=== PATIENT | female | born 1925 | race African-American/Black ===

== ENCOUNTER 2016-07-17 12:15 | Inpatient (IN) | payer MEDICARE, BC ==
[~2016-07-17] VITALS: Ht 167.6 cm; Wt 50.9 kg
[2016-07-17] MEDS ORDERED: DUONEB INH ONE (13:06)
[2016-07-17] MEDS ORDERED: CEFTRIAXONE 1 GM VIAL ONE (14:15)
[2016-07-17] MEDS ORDERED: SODIUM CHLORIDE 0.9% 100 ML IV ONE (14:15)
[2016-07-17] MEDS ORDERED: SODIUM CHLORIDE 0.9% 1,000 ML ONE (15:33)
[2016-07-17] MEDS ORDERED: SALINE FLUSH 10 ML FLUSH PRN (15:50)
[2016-07-17 17:21] VITALS: BP_SYST 178; RESP 24; TEMP 98.2
[2016-07-17 17:44] VITALS: BP_SYST 160
[2016-07-17 17:58] VITALS: BMI 19.4
[2016-07-17 19:00] VITALS: RESP 22
[2016-07-17] MEDS: NEB-BUDESONIDE 0.5 MG INH SCH (19:24)
[2016-07-17] MEDS: NEB-BROVANA 15 MCG/2 ML INH SCH (19:24)
[2016-07-17 19:47] VITALS: BP_SYST 126; RESP 22; TEMP 97.7
[2016-07-17] MEDS: Furosemide 40 MG/4 ML VIAL IV SCH (20:14)
[2016-07-17] MEDS: SALINE FLUSH 10 ML FLUSH SCH (20:14)
[2016-07-17] MEDS ORDERED: APIXABAN 2.5 MG TAB PO SCH (21:00)
[2016-07-17 23:06] VITALS: BP_SYST 127; RESP 20; TEMP 97.8
[2016-07-18 04:20] VITALS: BP_SYST 112; RESP 20; TEMP 97.8
[2016-07-18] MEDS: SODIUM CHLORIDE 0.9% FLUSH BAG 500 ML IV SCH ×2 (06:00→08:48)
[2016-07-18] MEDS: NEB-BUDESONIDE 0.5 MG INH SCH ×2 (07:01→18:33)
[2016-07-18] MEDS: NEB-BROVANA 15 MCG/2 ML INH SCH ×2 (07:01→18:33)
[2016-07-18 07:30] VITALS: BP_SYST 141; RESP 20; TEMP 97.8
[2016-07-18] MEDS: FERROUS GLUC 324 MG TAB PO SCH ×3 (08:48→16:43)
[2016-07-18] MEDS: SALINE FLUSH 10 ML FLUSH SCH ×2 (08:48→20:21)
[2016-07-18] MEDS: CEFTRIAXONE 1 GM in SODIUM CHLORIDE 0.9% 50 ML IV SCH (08:49)
[2016-07-18] MEDS: MEGESTROL 800 MG/20 ML UDC PO SCH (08:49)
[2016-07-18] MEDS: SPIRONOLACTONE 25 MG TAB PO SCH (08:49)
[2016-07-18] MEDS: Furosemide 40 MG/4 ML VIAL IV SCH ×2 (08:50→19:00)
[2016-07-18] MEDS ORDERED: METOPROLOL XL 25 MG TAB PO SCH (09:00)
[2016-07-18 11:19] VITALS: BP_SYST 130; RESP 20; TEMP 97.6
[2016-07-18] MEDS ORDERED: METOPROLOL XL 25 MG TAB PO ONE (14:35)
[2016-07-18 16:02] VITALS: BP_SYST 105; RESP 20; TEMP 97.5
[2016-07-18] MEDS: NEB-ALBUTEROL 2.5 MG/3 ML INH SCH (18:33)
[2016-07-18 19:43] VITALS: BP_SYST 96; RESP 20; TEMP 97.5
[2016-07-18 22:51] VITALS: BP_SYST 125; RESP 12; RESP 14; TEMP 98.3
[2016-07-19 03:13] VITALS: BP_SYST 120; RESP 14; TEMP 98.4
[2016-07-19] MEDS: SODIUM CHLORIDE 0.9% FLUSH BAG 500 ML IV SCH (05:57)
[2016-07-19 07:20] VITALS: BP_SYST 116; RESP 16; TEMP 97.1
[2016-07-19] MEDS: NEB-BUDESONIDE 0.5 MG INH SCH ×2 (07:55→20:02)
[2016-07-19] MEDS: NEB-ALBUTEROL 2.5 MG/3 ML INH SCH ×3 (07:55→20:02)
[2016-07-19] MEDS: NEB-BROVANA 15 MCG/2 ML INH SCH ×2 (07:55→20:02)
[2016-07-19] MEDS: CEFTRIAXONE 1 GM in SODIUM CHLORIDE 0.9% 50 ML IV SCH (08:55)
[2016-07-19] MEDS: MEGESTROL 800 MG/20 ML UDC PO SCH (08:56)
[2016-07-19] MEDS: METOPROLOL XL 25 MG TAB PO SCH (08:56)
[2016-07-19] MEDS: Furosemide 40 MG/4 ML VIAL IV SCH (08:56)
[2016-07-19] MEDS: FERROUS GLUC 324 MG TAB PO SCH ×3 (08:56→18:13)
[2016-07-19] MEDS: SPIRONOLACTONE 25 MG TAB PO SCH (08:57)
[2016-07-19] MEDS: SALINE FLUSH 10 ML FLUSH SCH ×2 (08:57→19:54)
[2016-07-19 11:24] VITALS: BP_SYST 105; RESP 16; TEMP 98
[2016-07-19 15:24] VITALS: BP_SYST 102; RESP 16; TEMP 97.9
[2016-07-19 19:32] VITALS: BP_SYST 112; RESP 16; TEMP 97.2
[2016-07-19 23:05] VITALS: BP_SYST 127; RESP 16; TEMP 98.3
[2016-07-20 04:01] VITALS: BP_SYST 140; RESP 16; TEMP 98.6
[2016-07-20] MEDS: SODIUM CHLORIDE 0.9% FLUSH BAG 500 ML IV SCH (06:05)
[2016-07-20] MEDS: NEB-BROVANA 15 MCG/2 ML INH SCH ×2 (07:05→18:20)
[2016-07-20] MEDS: NEB-BUDESONIDE 0.5 MG INH SCH ×2 (07:05→18:20)
[2016-07-20] MEDS: NEB-ALBUTEROL 2.5 MG/3 ML INH SCH ×2 (07:05→18:20)
[2016-07-20 07:37] VITALS: BP_SYST 125; RESP 16; TEMP 98.8
[2016-07-20] MEDS: SALINE FLUSH 10 ML FLUSH SCH ×2 (08:00→19:36)
[2016-07-20] MEDS: SPIRONOLACTONE 25 MG TAB PO SCH (09:20)
[2016-07-20] MEDS: FERROUS GLUC 324 MG TAB PO SCH ×3 (09:20→17:53)
[2016-07-20] MEDS: METOPROLOL XL 25 MG TAB PO SCH (09:20)
[2016-07-20] MEDS: Furosemide 40 MG TAB PO SCH (09:21)
[2016-07-20] MEDS: MEGESTROL 800 MG/20 ML UDC PO SCH (09:21)
[2016-07-20] MEDS: CEFTRIAXONE 1 GM in SODIUM CHLORIDE 0.9% 50 ML IV SCH (09:21)
[2016-07-20 10:50] VITALS: BP_SYST 107; RESP 16; TEMP 98.5
[2016-07-20 16:18] VITALS: BP_SYST 101; RESP 16; TEMP 98
[2016-07-20] MEDS ORDERED: MISSING DOSE XX ONE (17:25)
[2016-07-20 20:00] VITALS: BP_SYST 109; RESP 16; TEMP 98.3
[2016-07-21] VITALS (7 sets, daily range): BP systolic 105–135; RESP 16–20; TEMP 98–98.4
[2016-07-21] MEDS: NEB-BROVANA 15 MCG/2 ML INH SCH (05:02)
[2016-07-21] MEDS: NEB-BUDESONIDE 0.5 MG INH SCH (05:02)
[2016-07-21] MEDS: NEB-ALBUTEROL 2.5 MG/3 ML INH SCH ×2 (05:02→11:45)
[2016-07-21] MEDS: SODIUM CHLORIDE 0.9% FLUSH BAG 500 ML IV SCH (05:57)
[2016-07-21] MEDS: METOPROLOL XL 25 MG TAB PO SCH (09:18)
[2016-07-21] MEDS: FERROUS GLUC 324 MG TAB PO SCH ×2 (09:18→12:47)
[2016-07-21] MEDS: SALINE FLUSH 10 ML FLUSH SCH (09:18)
[2016-07-21] MEDS: Furosemide 40 MG TAB PO SCH (09:18)
[2016-07-21] MEDS ORDERED: MISSING DOSE XX ONE (09:35)
[2016-07-21] MEDS: SPIRONOLACTONE 25 MG TAB PO SCH (10:27)
[2016-07-21] MEDS: MEGESTROL 800 MG/20 ML UDC PO SCH (10:28)
== END 2016-07-21 17:41 | disposition home health service (06) | DRG 291 ==
LOC: CANRESERV → ENRESERVTM → ENRESERVDT → ER 12:15 → EMR 16:00 → PCU2 17:12 → INTOOBSV 07-19 15:54 → OBSVTOIN 07-19 15:54 → ENPENDDIS 07-19 16:38 → OBSVTOIN 07-19 16:38 → PCU 07-20 12:54
PROVIDERS: ADMIT Family Medicine; ATTEND Family Medicine
PROC: 0W9B3ZX Drainage of Left Pleural Cavity, Percutaneous Approach, Diagnostic (ICD-10-PCS; principal; 2016-07-18)
CPT/HCPCS: 36415; 71010; 80048; 80053; 80061; 81001; 82150; 82553; 82945; 83605; 83615; 83735; 83880; 83986; 84100; 84155; 84439; 84443; 84484; 85025; 87040; 87071; 87088; 87102; 87116; 87205; 87206; 87804; 88108; 89051; 93005; 93306; 94640; 94799; 96361; 96365; 99223; 99232; 99233